=== PATIENT | female | born 1985 | race Caucasian/White ===

== ENCOUNTER 2018-09-04 09:04 | Emergency (ER) | payer OTHER ==
[~2018-09-04] VITALS: Ht 167.6 cm; Wt 74.8 kg
--- NOTE | 2018-09-04 09:27 | PHYS DOC ---
Adult General Chief Complaint Chief Complaint: VAGINAL BLEEDING HPI HPI 33-year-old female that is 5-6 weeks presents with vaginal bleeding. The patient stated she started have some light spotting at 9:30 last night. She has still had some light spotting this morning. She had a short episode of mild cramping on the left side that is pain-free at this time. Patient has had a spontaneous miscarriage in the past. These were the first symptom she had at that time. She also has one living child. She denies fever or chills. She is not any trauma. She's had no previous ultrasound this . Review of Systems Review of Systems Constitutional: Denies fever or chills [] Eyes: Denies change in visual acuity, redness, or eye pain [] HENT: Denies nasal congestion or sore throat [] Respiratory: Denies cough or shortness of breath [] Cardiovascular: No additional information not addressed in HPI [] GI: Denies abdominal pain, nausea, vomiting, bloody stools or diarrhea [] : Vaginal bleeding in [] Musculoskeletal: Denies back pain or joint pain [] Integument: Denies rash or skin lesions [] Neurologic: Denies headache, focal weakness or sensory changes [] Endocrine: Denies polyuria or polydipsia [] All other systems were reviewed and found to be within normal limits, except as documented in this note. Physical Exam Physical Exam Constitutional: Well developed, well nourished, no acute distress, non-toxic appearance. [] HENT: Normocephalic, atraumatic, bilateral external ears normal, oropharynx moist, no oral exudates, nose normal. [] Eyes: PERRLA, EOMI, conjunctiva normal, no discharge. [] Neck: Normal range of motion, no tenderness, supple, no stridor. [] Cardiovascular:Heart rate regular rhythm, no murmur [] Lungs & Thorax: Bilateral breath sounds clear to auscultation [] Abdomen: Bowel sounds normal, soft, no tenderness, no masses, no pulsatile masses. [] Skin: Warm, dry, no erythema, no rash. [] Back: No tenderness, no CVA tenderness. [] Extremities: No tenderness, no cyanosis, no clubbing, ROM intact, no edema. [] Neurologic: Alert and oriented X 3, normal motor function, normal sensory function, no focal deficits noted. [] Psychologic: Affect normal, judgement normal, mood normal. [] EKG EKG [] Radiology/Procedures Radiology/Procedures [] Impressions: First trimester ultrasound less than 14 weeks with transvaginal exam: Clinical indications: 5 weeks . Bleeding. Findings: Transabdominal study: Uterus is anteverted in position. The longitudinal and AP and transverse dimensions of the uterus are 10.7 cm and 5.1 cm and 5.3 cm respectively. No gestational sac is seen. Therefore, transvaginal sonography will be performed. Neither ovary is visualized. No adnexal mass or free fluid is evident. Transvaginal study: The endometrium measures 13 mm in thickness by transvaginal exam. There is a small round fluid collection within the endometrial canal. No pole or heartbeat or yolk sac is seen. However the fluid collection is complex. This may represent a very early gestational sac although this is not definite. Viability cannot be determined on this study therefore. If this does represent a gestational sac, the average gestational sac size is 0.56 cm which corresponds to an approximate gestational age of 5 weeks and 2 days +/- 12 days. EDC is May 05, 2019 Sac shape and amniotic fluid volume: Indeterminate due to the early age and not certain that this is a gestational sac.. Placenta location: Indeterminate due to the early stage of gestation. Cervical length: Greater than 3.0 cm. Extrachorionic hemorrhage: None. Uterus: No uterine fibroids are seen. Maternal ovaries: Right ovary: 3.0 cm x 2.7 cm x 2.2 cm. Normal. Color-flow Doppler: Present Left ovary: 3.6 cm x 1.5 cm x 2.2 cm. Normal. Color-flow Doppler: Present Adnexa: no adnexal masses are seen. Free fluid: None. Impression: Possible early 5 week gestational sac but no yolk sac or pole or heartbeat is seen yet. Therefore, this is indeterminate. Recommend correlation with serial quantitative beta-hCG studies. A follow-up ultrasound study in 10 and 14 days may be helpful if clinically needed. No adnexal mass or free fluid is seen otherwise. Electronically signed by: Ezekiel Charles MD (09/04/2018 10:35 AM) [id number] Course & Med Decision Making Course & Med Decision Making Pertinent Labs and Imaging studies reviewed. (See chart for details) The patient's ultrasound does show an intrauterine , but we're unable to determine viability of the fetus as it is too early for heartbeat. I have advised the patient to follow up with serial hCGs. He stated verbal understanding. She is stable for discharge at this time. [] Dragon Disclaimer Dragon Disclaimer This electronic medical record was generated, in whole or in part, using a voice recognition dictation system. Departure Departure: Impression: Primary Impression: Vaginal bleeding affecting early Disposition: 01 HOME, SELF-CARE Condition: STABLE Patient Instructions: Vaginal Bleeding During , First Trimester YUKO SAUCEDA DO Sep 04, 2018 09:27
[2018-09-04] MEDS ORDERED: IV NORMAL SALINE 1,000ML 1,000 ML IV ONE (09:30)
[2018-09-04 09:53] LABS: BASO # 0.1 x10^3/uL (0.0-0.2); BASO % 1 % (0-3); EOS # 0.1 x10^3/uL (0.0-0.7); EOS % 1 % (0-3); HEMATOCRIT 38.7 % (36.0-47.0); HEMOGLOBIN 12.8 g/dL (12.0-15.5); LYMPH # 2.4 x10^3/uL (1.0-4.8); LYMPH % 35 % (24-48); MEAN CORPUSCULAR HEMOGLOBIN 31 pg (25-35); MEAN CORPUSCULAR HGB CONC 33 g/dL (31-37); MEAN CORPUSCULAR VOLUME 93 fL (79-100); MONO # 0.4 x10^3/uL (0.0-1.1); MONO % 6 % (0-9); NEUT # 3.9 x10^3uL (1.8-7.7); NEUT % 57 % (31-73); PLATELET COUNT 244 x10^3/uL (140-400); RED BLOOD COUNT 4.17 x10^6/uL (3.50-5.40); RED CELL DISTRIBUTION WIDTH 14.4 % (11.5-14.5); WHITE BLOOD COUNT 6.8 x10^3/uL (4.0-11.0)
[2018-09-04 10:13] LABS: ALBUMIN 3.8 g/dL (3.4-5.0); ALBUMIN/GLOBULIN RATIO 1.4 (1.0-1.7); CALCIUM 9.1 mg/dL (8.5-10.1); CREATININE 0.8 mg/dL (0.6-1.0); GFR 82.6; POTASSIUM 4.1 mmol/L (3.5-5.1); TOTAL BILIRUBIN 0.4 mg/dL (0.2-1.0); TOTAL PROTEIN 6.6 g/dL (6.4-8.2)
--- NOTE | 2018-09-04 10:40 | RAD ---
First trimester ultrasound less than 14 weeks with transvaginal exam: Clinical indications: 5 weeks . Bleeding. Findings: Transabdominal study: Uterus is anteverted in position. The longitudinal and AP and transverse dimensions of the uterus are 10.7 cm and 5.1 cm and 5.3 cm respectively. No gestational sac is seen. Therefore, transvaginal sonography will be performed. Neither ovary is visualized. No adnexal mass or free fluid is evident. Transvaginal study: The endometrium measures 13 mm in thickness by transvaginal exam. There is a small round fluid collection within the endometrial canal. No pole or heartbeat or yolk sac is seen. However the fluid collection is complex. This may represent a very early gestational sac although this is not definite. Viability cannot be determined on this study therefore. If this does represent a gestational sac, the average gestational sac size is 0.56 cm which corresponds to an approximate gestational age of 5 weeks and 2 days +/- 12 days. EDC is May 05, 2019 Sac shape and amniotic fluid volume: Indeterminate due to the early age and not certain that this is a gestational sac.. Placenta location: Indeterminate due to the early stage of gestation. Cervical length: Greater than 3.0 cm. Extrachorionic hemorrhage: None. Uterus: No uterine fibroids are seen. Maternal ovaries: Right ovary: 3.0 cm x 2.7 cm x 2.2 cm. Normal. Color-flow Doppler: Present Left ovary: 3.6 cm x 1.5 cm x 2.2 cm. Normal. Color-flow Doppler: Present Adnexa: no adnexal masses are seen. Free fluid: None. Impression: Possible early 5 week gestational sac but no yolk sac or pole or heartbeat is seen yet. Therefore, this is indeterminate. Recommend correlation with serial quantitative beta-hCG studies. A follow-up ultrasound study in 10 and 14 days may be helpful if clinically needed. No adnexal mass or free fluid is seen otherwise. Electronically signed by: Ezekiel Charles MD (09/04/2018 10:35 AM) [id number]
[2018-09-04 11:25] VITALS: BP 120/70
== END 2018-09-04 11:30 | disposition home or self-care (01) ==
LOC: ER 09:30
DX: O46.91 Antepartum hemorrhage, unspecified, first trimester (principal); Z3A.01 Less than 8 weeks gestation of pregnancy
CPT/HCPCS: 36415; 76801; 76817; 80053; 84702; 85025; 86900; 86901; 96360; 99284-25; J7030